=== PATIENT | female | born 1930 | race Caucasian/White ===

== ENCOUNTER 2017-01-26 15:41 | Inpatient (IN) | payer OTHER ==
--- NOTE | 2017-01-26 16:41 | PDOC ---
History of Present Illness - General History Source: Patient Exam Limitations: No Limitations <Salvador Botelloie - Last Filed: 01/26/17 18:57> <Gail Rios - Last Filed: 01/26/17 19:20> - General Chief Complaint: Chest Pain Stated Complaint: CHEST PAIN, SOB - History of Present Illness Initial Comments: 01/26/17 18:16 The patient is an 86-year-old female, with a significant past medical history of , HTN, hypercholesterolemia, COPD, thyroid disease, thyroid ca (on chemotherapy) , who was sent to the ED by Dr Ramirez for further cardiac evaluation. Pt states that she was experiencing palpitations last night that lasted about an hour before resolving on its own. The patient went to see Dr. Ramirez this morning and was found to have afib on her EKG. The pt was started on Eliquis 2 weeks ago. The patient was sent to the ED for further evaluation. The patient denies any fever, chills, nausea vomiting, diarrhea, or abdominal pain. The patient denies any shortness of breath or chest pain. 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) Cardiac Disorders: No CVA: No COPD: Yes (EMPHYSEMA) CHF: No Dementia: No Diabetes: No GI Disorders: Yes (REFLUX) Disorders: No HTN: Yes Hypercholesterolemia: Yes Seizures: No Thyroid Disease: Yes - Surgical History Abdominal Surgery: No Appendectomy: Yes Cardiac Surgery: No Cholecystectomy: No Lung Surgery: No Neurologic Surgery: No Orthopedic Surgery: No - Immunization History Immunization Up to Date: Yes - Suicide/Smoking/Psychosocial Hx Smoking History: Never smoked Have you smoked in the past 12 months: No Information on smoking cessation initiated: No Hx Alcohol Use: No Drug/Substance Use Hx: No Substance Use Type: None Hx Substance Use Treatment: No <Gail Rios - Last Filed: 01/26/17 19:20> - Past Medical History Allergies/Adverse Reactions: Allergies Allergy/AdvReac Type Severity Reaction Status Date / Time codeine AdvReac Intermediate Verified 01/26/17 15:45 Home Medications: Ambulatory Orders Alprazolam 0.25 mg PO DAILY 12/07/12 Amlodipine Bes/Olmesartan Med [Saeed 10-20 mg Tablet] 1 each PO DAILY 12/07/12 Aspirin [ASA -] 81 mg PO DAILY 12/07/12 Atenolol [Tenormin -] 100 mg PO DAILY 12/07/12 Simvastatin [Zocor -] 20 mg PO HS 12/07/12 Levothyroxine [Synthroid -] 88 mcg PO DAILY 06/13/14 Apixaban [Eliquis] 2.5 mg PO DAILY 01/26/17 Dabrafenib Mesylate [Tafinlar] 75 mg PO DAILY 01/26/17 Montelukast Sodium [Singulair] 4 mg PO DAILY 01/26/17 Cardiac Specific PMH - Complaint Specific PMHX Pacemaker: No <Gail Rios - Last Filed: 01/26/17 19:20> Review of Systems - Review of Systems Able to Perform ROS?: Yes <Elizabeth Btoello - Last Filed: 01/26/17 18:57> <Gail Rios - Last Filed: 01/26/17 19:20> - Review of Systems Comments:: 01/26/17 18:16 CONSTITUTIONAL: Absent: fever, chills, diaphoresis, generalized weakness, malaise, loss of appetite HEENT: Absent: rhinorrhea, nasal congestion, throat pain, throat swelling, difficulty swallowing, mouth swelling, ear pain, eye pain, visual Changes CARDIOVASCULAR: Present: palpitations Absent: chest pain, syncope, irregular heart rate, lightheadedness, peripheral edema RESPIRATORY: Absent: cough, shortness of breath, dyspnea with exertion, orthopnea, wheezing, stridor, hemoptysis GASTROINTESTINAL: Absent: abdominal pain, abdominal distension, nausea, vomiting, diarrhea, constipation, melena, hematochezia GENITOURINARY: Absent: dysuria, frequency, urgency, hesitancy, hematuria, flank pain, genital pain MUSCULOSKELETAL: Absent: myalgia, arthralgia, joint swelling SKIN: Absent: rash, itching, pallor HEMATOLOGIC/IMMUNOLOGIC: Absent: easy bleeding, easy bruising, lymphadenopathy, frequent infections ENDOCRINE: Absent: unexplained weight gain, unexplained weight loss, heat intolerance, cold intolerance NEUROLOGIC: Absent: headache, focal weakness or paresthesias, dizziness, unsteady gait, seizure, mental status changes, bladder or bowel incontinence PSYCHIATRIC: Absent: anxiety, depression, suicidal or homicidal ideation, hallucinations. (Elizabeth Botello) *Physical Exam <Elizabeth Botello - Last Filed: 01/26/17 18:57> <Gail Rios - Last Filed: 01/26/17 19:20> - Vital Signs Last Vital Signs Temp Pulse Resp BP Pulse Ox 97.8 F 79 14 141/71 95 01/26/17 15:45 01/26/17 15:45 01/26/17 15:45 01/26/17 15:45 01/26/17 15:45 - Physical Exam Comments: 01/26/17 18:18 GENERAL: Well developed, well nourished. Awake and alert. No acute distress. HEENT: Normocephalic, atraumatic. PERRLA, EOMI. No conjunctival pallor. Sclera are non- icteric. Moist mucous membranes. Oropharynx is clear. NECK: Supple. Full ROM. No JVD. Carotid pulses 2+ and symmetric, without bruits. No thyromegaly. No lymphadenopathy. CARDIOVASCULAR: (+)Tachycardic. Irregularly irregular. No murmurs, rubs, or gallops. Distal pulses are 2+ and symmetric. PULMONARY: No evidence of respiratory distress. Lungs clear to auscultation bilaterally. No wheezing, rales or rhonchi. ABDOMINAL: Soft. Non-tender. Non-distended. No rebound or guarding. No organomegaly. Normoactive bowel sounds. MUSCULOSKELETAL Normal range of motion at all joints. No bony deformities or tenderness. No CVA tenderness. EXTREMITIES: (+)Bilateral 2+ pitting edema in the lower extremities. No cyanosis. No clubbing. No calf tenderness. SKIN: Warm and dry. Normal capillary refill. No rashes. No jaundice. NEUROLOGICAL: Alert, awake, appropriate. PSYCHIATRIC: Cooperative. Good eye contact. Appropriate mood and affect. (Elizabeth Botello) ED Treatment Course - LABORATORY CBC & Chemistry Diagram: 01/26/17 16:50 01/26/17 16:50 <Salvador Botelloie - Last Filed: 01/26/17 18:57> - LABORATORY CBC & Chemistry Diagram: 01/26/17 16:50 01/26/17 16:50 <Gail Rios - Last Filed: 10/02/17 19:20> - ADDITIONAL ORDERS Additional order review: Laboratory Results 01/26/17 01/26/17 01/26/17 16:50 16:50 16:50 PT with INR 13.90 H INR 1.26 H Sodium 130 L Potassium 3.5 Chloride 90 L Carbon Dioxide 27 Anion Gap 13 BUN 16 Creatinine 0.6 Creat Clearance w eGFR > 60 Random Glucose 126 H Calcium 8.4 L Magnesium 1.9 Total Bilirubin 0.7 AST 24 D ALT 23 D Alkaline Phosphatase 67 Creatine Kinase 90 Troponin I < 0.02 B-Natriuretic Peptide 3872.36 H Total Protein 7.0 Albumin 3.7 01/26/17 16:50 RBC 4.00 MCV 86.2 MCHC 34.6 RDW 16.2 H D MPV 7.5 Neutrophils % 86.2 H Lymphocytes % 6.9 L Monocytes % 6.0 Eosinophils % 0.0 Basophils % 0.9 - RADIOLOGY Radiology Studies Ordered: Category Date Time Status CHEST X-RAY PORTABLE* [RAD] Stat Radiology 01/26/17 16:43 Taken Medical Decision Making <Elizabeth Botello - Last Filed: 01/26/17 18:57> <Gail Rios - Last Filed: 01/26/17 19:20> - Medical Decision Making 01/26/17 18:29 Dr. Ramirez was paged and notified via phone service. Second page was placed at 18:57. (Elizabeth Botello) 01/26/17 16:52 86 yo female sent in for admission by Dr Ramirez for admission for further cardiac evaluation -she was placed on eliquis about 2 weeks ago -her garbage pick up man is Dr Valerie Leo -EKG from the office shows rate controlled afib -she had an ECHO last week -she has thyroid cancer and currently on chemo. She has a large left pleural effusion and her bnp >3000 but she NOT in any resp distress, lungs clear to auscultation,no significant pitting edema,pulse ox on room air is >95% bnp>3000. At this time she is asymptomatic and no IV lasix was given 01/26/17 16:57 PMH thyroid cancer on chemo - 01/26/17 19:11 spoke with Torsten Lopez who will be admitting for Dr Ana Paula Ramirez -pt to go to telemetry and will be seen by Dr Guillen ,garbage pick up man - (Gail Rios) *DC/Admit/Observation/Transfer <Elizabeth Botello - Last Filed: 01/26/17 18:57> - Discharge Dispostion Admit: Yes <Gail Rios - Last Filed: 01/26/17 19:20> Diagnosis at time of Disposition: Thyroid malignant neoplasm, Pleural effusion Afib Qualifiers: Atrial fibrillation type: persistent Qualified Code(s): I48.1 - Persistent atrial fibrillation - Referrals - Attestations Scribe Attestion: 01/26/17 18:23 Documentation prepared by Elizabeth Botello, acting as medical records secretary for Gail Rios MD. (Elizabeth Botello)
[2017-01-26 17:17] LABS: BASOPHIL 0.9 % (0-2.0); MCH 29.8 pg (25.7-33.7); MCHC 34.6 g/dl (32.0-36.0); MEAN CELL VOLUME 86.2 fl (80-96); MEAN PLT VOLUME 7.5 fl (7.5-11.1); NEUTROPHILS 86.2 % (42.8-82.8); PLATELET COUNT 272 K/MM3 (134-434); RDW 16.2 % (11.6-15.6); WHITE BLOOD COUNT 8.9 K/mm3 (4.0-10.0)
[2017-01-26 17:41] LABS: INR 1.26 (0.82-1.09); PROTHROMBIN TIME (PATIENT) 13.9 SEC (9.98-11.88)
[2017-01-26 17:43] LABS: ALBUMIN 3.7 g/dl (3.4-5.0); ANION GAP 13 (8-16); CALCIUM 8.4 mg/dL (8.5-10.1); CO2 27 mmol/L (21-32); CREATININE 0.6 mg/dL (0.55-1.02); GLUCOSE,RANDOM 126 mg/dL (74-106); MAGNESIUM 1.9 mg/dL (1.8-2.4); SGOT/AST 24 U/L (15-37); SGPT/ALT 23 U/L (12-78)
[2017-01-26 17:47] LABS: ALK PHOS 67 U/L (45-117); BILIRUBIN,TOTAL 0.7 mg/dL (0.2-1.0); CPK 90 IU/L (26-192); TROPONIN I < 0.02 ng/ml (0.00-0.05)
[2017-01-26] MEDS ORDERED: ALBUTEROL SO4 2.5/IPRATROPIUM 0.5 INH SOL 3 ML VIAL.NEB. NEB PRN (20:17)
[2017-01-26] MEDS ORDERED: ACETAMINOPHEN 325 MG TABLET (FP) PO PRN (20:17)
[2017-01-26 21:10] VITALS: BMI 22.8
[2017-01-26] MEDS: MONTELUKAST NA 10 MG TABLET PO SCH (22:12)
[2017-01-26] MEDS: ATORVASTATIN CA 20 MG TABLET (FP) PO SCH (22:13)
[2017-01-26] MEDS: APIXABAN 2.5 MG TABLET PO SCH (22:13)
[2017-01-26] MEDS: ALPRAZolam 0.25 MG TABLET PO PRN (22:14)
[2017-01-27 06:51] LABS: ALBUMIN 3.4 g/dl (3.4-5.0); ANION GAP 7 (8-16); CO2 31 mmol/L (21-32); GLUCOSE,RANDOM 107 mg/dL (74-106)
[2017-01-27 06:55] LABS: MCH 29.1 pg (25.7-33.7); MCHC 33.7 g/dl (32.0-36.0); MEAN CELL VOLUME 86.3 fl (80-96); MEAN PLT VOLUME 7.8 fl (7.5-11.1); PLATELET COUNT 258 K/MM3 (134-434); RDW 15.8 % (11.6-15.6); WHITE BLOOD COUNT 8.6 K/mm3 (4.0-10.0)
[2017-01-27] MEDS ORDERED: LEVOTHYROXINE NA 88 MCG TABLET (FP) PO SCH (07:00)
[2017-01-27 07:03] LABS: ALK PHOS 65 U/L (45-117); BILIRUBIN,TOTAL 0.8 mg/dL (0.2-1.0); CHOLESTEROL 168 mg/dL (50-200); CREATININE 0.6 mg/dL (0.55-1.02); SGOT/AST 23 U/L (15-37); SGPT/ALT 21 U/L (12-78); TOT PROT 6.8 g/dl (6.4-8.2)
--- NOTE | 2017-01-27 07:43 | HP ---
Admitting History and Physical - Admission History of Present Illness: 86-year-old female, with a significant past medical history of, HTN, hypercholesterolemia, COPD, thyroid disease, thyroid ca (on chemotherapy), who was sent to the ED from office due to chest pain and sob. Pt states that she was experiencing palpitations last night that lasted about an hour before resolving on its own. The patient was seen in office 2 weeks ago noted to be in afib with rate controlled and asymptomatic she was started on Eliquis . Echo done and shows normal Lv function--copy in chart This am pt feels a little better but still with sob on minimal exertion - Past Medical History Cardiovascular: Yes: AFIB, HTN, Hyperlipdemia Pulmonary: Yes: Asthma, Other (pulmonary nodules--mets) Gastrointestinal: Yes: GERD Heme/Onc: Yes: Anemia Endocrine: Yes: Hypothyroidism, Other (osteoporosis) - Past Surgical History Additional Past Surgical History: thyroidectomy - Smoking History Smoking history: Never smoked Have you smoked in the past 12 months: No - Alcohol/Substance Use Hx Alcohol Use: No Home Medications - Allergies Allergies/Adverse Reactions: Allergies Allergy/AdvReac Type Severity Reaction Status Date / Time codeine AdvReac Intermediate Verified 01/26/17 15:45 - Home Medications Home Medications: Ambulatory Orders Alprazolam 0.125 mg PO HS PRN 12/07/12 Amlodipine Bes/Olmesartan Med [Saeed 10-20 mg Tablet] 1 each PO DAILY 12/07/12 Aspirin [ASA -] 81 mg PO DAILY 12/07/12 Atenolol [Tenormin -] 100 mg PO DAILY 12/07/12 Simvastatin [Zocor -] 20 mg PO HS 12/07/12 Levothyroxine [Synthroid -] 88 mcg PO DAILY 06/13/14 Apixaban [Eliquis] 2.5 mg PO BID 01/26/17 Dabrafenib Mesylate [Tafinlar] 75 mg PO BID 01/26/17 Montelukast Sodium [Singulair Granules -] 4 mg PO HS 01/26/17 Review of Systems - Review of Systems Cardiovascular: reports: Chest Pain, Palpitations, Shortness of Breath Respiratory: reports: SOB, SOB on Exertion Gastrointestinal: denies: Abdominal Pain Genitourinary: reports: No Symptoms Musculoskeletal: reports: No Symptoms Neurological: reports: No Symptoms Physical Examination Vital Signs: Vital Signs Temperature 98.4 F 01/27/17 05:53 Pulse Rate 100 H 01/27/17 05:53 Respiratory Rate 20 01/27/17 05:53 Blood Pressure 154/91 01/27/17 05:53 O2 Sat by Pulse Oximetry (%) 94 L 01/26/17 20:30 Cardiovascular: Yes: Pulse Irregular, Murmur, S1, S2 Respiratory: Yes: On Nasal O2, Rales Gastrointestinal: Yes: Normal Bowel Sounds, Soft Edema: No Labs: CBC, BMP 01/27/17 06:00 01/27/17 06:00 Imaging - Results EKG: Report Reviewed Problem List - Problems (1) Afib Assessment/Plan: continue with atenolol tele follow ce echo noted continue with eliquis 2.5 bid(over 80 and less than 60 kg) cardio Code(s): I48.91 - UNSPECIFIED ATRIAL FIBRILLATION Qualifiers: Atrial fibrillation type: persistent Qualified Code(s): I48.1 - Persistent atrial fibrillation; I48.1 - Persistent atrial fibrillation; I48.1 - Persistent atrial fibrillation; I48.1 - Persistent atrial fibrillation (2) Thyroid malignant neoplasm Assessment/Plan: follow up at [facility] \ has been stable Code(s): C73 - MALIGNANT NEOPLASM OF THYROID GLAND (3) CHF (congestive heart failure) Assessment/Plan: iv lasix cardio follow up cxr monitor lytes Code(s): I50.9 - HEART FAILURE, UNSPECIFIED (4) Chest pain Assessment/Plan: follow ce cardio consider stress testing Code(s): R07.9 - CHEST PAIN, UNSPECIFIED
[2017-01-27 08:27] LABS: CPK 71 IU/L (26-192); TROPONIN I 0.02 ng/ml (0.00-0.05)
--- NOTE | 2017-01-27 09:36 | EKG ---
Test Reason : Blood Pressure : / mmHG Vent. Rate : 103 BPM Atrial Rate : 050 BPM P-R Int : 000 ms QRS Dur : 070 ms QT Int : 362 ms P-R-T Axes : 000 014 -72 degrees QTc Int : 474 ms ATRIAL FIBRILLATION WITH RAPID VENTRICULAR RESPONSE LOW VOLTAGE QRS NONSPECIFIC ST AND T WAVE ABNORMALITY ABNORMAL ECG WHEN COMPARED WITH ECG OF 05-JAN-2013 11:07, ATRIAL FIBRILLATION HAS REPLACED SINUS RHYTHM QRS VOLTAGE HAS DECREASED NONSPECIFIC T WAVE ABNORMALITY NOW EVIDENT IN ANTEROLATERAL LEADS QT HAS LENGTHENED Confirmed by MARY LOVE MD ([id number]) on 01/27/2017 9:36:20 AM Referred By: Confirmed By:MARY LOVE MD
[2017-01-27] MEDS ORDERED: ATENOLOL 50 MG TABLET (FP) PO SCH (10:00)
[2017-01-27] MEDS: amLODIPine BESYLATE 10 MG TABLET (FP) PO SCH (10:02)
[2017-01-27] MEDS: VALSARTAN 80 MG TABLET (UD) PO SCH (10:04)
[2017-01-27] MEDS: FUROSEMIDE 40 MG/4 ML INJECTABLE VIAL IVPB SCH (10:05)
[2017-01-27] MEDS: ASPIRIN COATED 81 MG TABLET.EC PO SCH (10:05)
[2017-01-27] MEDS: KCL 10 MEQ IVPB 100 ML IVPB SCH ×2 (10:05→12:27)
[2017-01-27] MEDS: APIXABAN 2.5 MG TABLET PO SCH ×2 (10:05→21:33)
--- NOTE | 2017-01-27 11:52 | PN ---
Progress Note (short form) - Note Progress Note: PULMONARY CONSULTATION DICTATED 01/27/17 IMP CHF BILATERAL PLEURAL EFFUSIONS LIKEY SECONDARY TO CHF AFIB COPD/ASTHMA METASTATIC THYROID CA S/P THYROIDECTOMY/RT/CHEMO GERD ANEMIA PLAN O2 INHALED BRONCHODILATORS ELIQUIS PFTS OUTPATIENT F/U CHEST X-RAY DR YAO Problem List - Problems (1) Afib Code(s): I48.91 - UNSPECIFIED ATRIAL FIBRILLATION Qualifiers: Atrial fibrillation type: persistent Qualified Code(s): I48.1 - Persistent atrial fibrillation; I48.1 - Persistent atrial fibrillation; I48.1 - Persistent atrial fibrillation; I48.1 - Persistent atrial fibrillation (2) CHF (congestive heart failure) Code(s): I50.9 - HEART FAILURE, UNSPECIFIED (3) Pleural effusion Code(s): J90 - PLEURAL EFFUSION, NOT ELSEWHERE CLASSIFIED (4) Thyroid malignant neoplasm Code(s): C73 - MALIGNANT NEOPLASM OF THYROID GLAND (5) Asthma-COPD overlap syndrome Code(s): J44.9 - CHRONIC OBSTRUCTIVE PULMONARY DISEASE, UNSPECIFIED
--- NOTE | 2017-01-27 14:21 | CONS ---
PULMONARY CONSULTATION DATE OF CONSULTATION: 01/27/2017 REFERRING PHYSICIAN: Andrea Ramirez MD HISTORY OF PRESENT ILLNESS: The patient is an 86-year-old white female with a past medical history of COPD and asthma, maintained on inhaled bronchodilators; hypertension; hypercholesterolemia; thyroid CA with metastasis, status post resection in 2012, postoperative treated with RT; vocal cord paralysis; currently started on chemotherapy at [facility] with Dr. Dai, admitted to [facility] with complaint of chest pain and shortness of breath. Patient apparently 2 weeks ago was noted to be in atrial fibrillation. She was started on Eliquis. Apparently, the night prior to admission, patient started developing shortness of breath and palpitations. Denied any complaints of chest pain or nausea, vomiting, or diaphoresis. Patient went to Dr. Ramirez's office with the above; for which, she was transferred to [facility] ER. Apparently, she had an echo done which was within normal limits. Patient was admitted for further evaluation. The patient, as stated before, is a nonsmoker. There is no history of occupational exposure to chemicals or fumes. She has a history of asthma for many years. She has never been intubated. On admission x-ray, she was noted to have bilateral pleural effusions, left greater than right, with a density noted in the left mid-lung field. Of note is she, as stated before, is being followed at [facility], has a CAT scan every 3 months at [facility]. PAST MEDICAL HISTORY: Again includes atrial fibrillation; hypertension; hyperlipidemia; thyroid CA with pulmonary metastases, status post resection; asthma; GERD; anemia; hypothyroidism; osteoporosis. REVIEW OF SYSTEMS: No orthopnea. No PND. Positive palpitations. Positive shortness of breath. No fever. No chills. No chest pain. No hemoptysis. No abdominal pain. No lower extremity edema. CURRENT MEDICATIONS: Include Tylenol, Eliquis, Diovan, Xanax, DuoNeb, Tenormin, Lipitor, Singulair, Lasix, Ecotrin, and Synthroid. PHYSICAL EXAMINATION: General: The patient is an elderly white female, thin, well developed, alert, in no acute distress. Vital Signs: She is afebrile. Blood pressure 154/91, respiratory rate is 20, and O2 saturation is 94% on room air and heart rate is 100. HEENT: Normocephalic, atraumatic. Neck: Supple. Heart: Irregular, irregular. Normal S1, S2. Chest: Diminished breath sounds bilaterally at the bases. A few bibasilar crackles. Abdomen: Soft. Bowel sounds are positive. Extremities: No cyanosis or edema. LABORATORY DATA: WBC is 8.6, hemoglobin 11.8, hematocrit 35.1 with a platelet count of 258,000. INR is 1.26. BUN is 15, creatinine 0.6. BNP is 30,872. TSH is 10.1. Chest x-ray: Cardiomegaly with bilateral pleural effusions. IMPRESSION: 1. Dyspnea, most likely secondary to decompensated congestive heart failure. 2. Metastatic thyroid cancer with pulmonary metastases, status post resection, currently on chemotherapy. 3. Bilateral pulmonary nodules secondary to metastatic thyroid cancer. 4. Atrial fibrillation. 5. Exacerbation of asthma and chronic obstructive pulmonary disease. 6. Hyperlipidemia. 7. Anemia. 8. Gastroesophageal reflux disease. PLAN: Continue rate control as per Cardiology. Continue Eliquis. Supplemental O2. Obtain followup chest x-rays. Lasix, inhaled bronchodilators. PFTs as an outpatient. PONCHO YAO M.D. [id number]
--- NOTE | 2017-01-27 16:15 | CONSULT ---
Consult Consult Specialty:: Nephrology Reason for Consultation:: hyponatremia - History of Present Illness Chief Complaint: chest pain and shortness of breath History of Present Illness: Pt is an 86 year old female with pmhx of HTN, Chol, recently diagnosed a-fib, CODP, and thyroid cancer who was sent to ER for chest pain and shortness of breath. She was found to have hyponatremia and I was called to evaluate her. She says she has been on a thiazide diuretic. She denies excess fluid intake. She was found to have elevated bnp and pleural effusions. Pt was started on diuretics. She feels that the shortness of breath has improved. She denies dysuria or hematuria. - History Source History Provided By: Patient, Medical Record - Past Medical History Cardio/Vascular: Yes: AFIB, HTN, Hyperlipdemia Pulmonary: Yes: Asthma, Other (pulmonary nodules--mets) Gastrointestinal: Yes: GERD Endocrine: Yes: Hypothyroidism, Other (osteoporosis) - Alcohol/Substance Use Hx Alcohol Use: No - Smoking History Smoking history: Never smoked Have you smoked in the past 12 months: No Home Medications - Allergies Allergies/Adverse Reactions: Allergies Allergy/AdvReac Type Severity Reaction Status Date / Time codeine AdvReac Intermediate Verified 01/26/17 15:45 - Home Medications Home Medications: Ambulatory Orders Alprazolam 0.125 mg PO HS PRN 12/07/12 Amlodipine Bes/Olmesartan Med [Saeed 10-20 mg Tablet] 1 each PO DAILY 12/07/12 Aspirin [ASA -] 81 mg PO DAILY 12/07/12 Atenolol [Tenormin -] 100 mg PO DAILY 12/07/12 Simvastatin [Zocor -] 20 mg PO HS 12/07/12 Levothyroxine [Synthroid -] 88 mcg PO DAILY 06/13/14 Apixaban [Eliquis] 2.5 mg PO BID 01/26/17 Dabrafenib Mesylate [Tafinlar] 75 mg PO BID 01/26/17 Montelukast Sodium [Singulair Granules -] 4 mg PO HS 01/26/17 Family Disease History - Family Disease History Family History: Denies Review of Systems - Review of Systems Constitutional: reports: Malaise Eyes: reports: No Symptoms HENT: reports: No Symptoms Neck: reports: No Symptoms Cardiovascular: reports: Edema, Palpitations, Shortness of Breath Respiratory: reports: SOB Gastrointestinal: reports: No Symptoms Genitourinary: reports: No Symptoms Musculoskeletal: reports: No Symptoms Integumentary: reports: No Symptoms Neurological: reports: No Symptoms Endocrine: reports: No Symptoms Hematology/Lymphatic: reports: No Symptoms Psychiatric: reports: No Symptoms Physical Exam Vital Signs: Vital Signs Temperature 98.4 F 01/27/17 05:53 Pulse Rate 100 H 01/27/17 05:53 Respiratory Rate 20 01/27/17 05:53 Blood Pressure 154/91 01/27/17 05:53 O2 Sat by Pulse Oximetry (%) 94 L 01/26/17 20:30 Constitutional: Yes: Calm Eyes: Yes: Conjunctiva Clear HENT: Yes: Atraumatic Neck: Yes: Supple Cardiovascular: Yes: S1, S2 Respiratory: Yes: Other (decreased sounds at bases) Gastrointestinal: Yes: Soft Renal/: Yes: WNL Musculoskeletal: Yes: WNL Edema: LLE: Trace, RLE: Trace Neurological: Yes: Oriented Psychiatric: Yes: Oriented Labs: CBC, BMP 01/27/17 06:00 01/27/17 06:00 Laboratory Tests 01/04/13 01/05/13 01/06/13 05:05 05:20 06:00 WBC Hgb Sodium 133 L 134 L 134 L Potassium Chloride Carbon Dioxide Anion Gap BUN Creatinine Random Glucose B-Natriuretic Peptide TSH 01/26/17 01/26/17 01/26/17 16:50 16:50 16:50 WBC Hgb 11.9 D Sodium 130 L Potassium 3.5 Chloride 90 L Carbon Dioxide 27 Anion Gap 13 BUN 16 Creatinine 0.6 Random Glucose B-Natriuretic Peptide 3872.36 H TSH 01/27/17 01/27/17 06:00 06:00 WBC 8.6 Hgb 11.8 Sodium 127 L Potassium 3.2 L Chloride 89 L Carbon Dioxide 31 Anion Gap 7 L BUN 15 Creatinine 0.6 Random Glucose 107 H B-Natriuretic Peptide TSH 10.10 H Imaging - Results Chest X-ray: Report Reviewed Problem List - Problems (1) Afib Code(s): I48.91 - UNSPECIFIED ATRIAL FIBRILLATION Qualifiers: Atrial fibrillation type: persistent Qualified Code(s): I48.1 - Persistent atrial fibrillation; I48.1 - Persistent atrial fibrillation; I48.1 - Persistent atrial fibrillation; I48.1 - Persistent atrial fibrillation (2) Asthma-COPD overlap syndrome Code(s): J44.9 - CHRONIC OBSTRUCTIVE PULMONARY DISEASE, UNSPECIFIED (3) CHF (congestive heart failure) Code(s): I50.9 - HEART FAILURE, UNSPECIFIED (4) Chest pain Code(s): R07.9 - CHEST PAIN, UNSPECIFIED (5) Pleural effusion Code(s): J90 - PLEURAL EFFUSION, NOT ELSEWHERE CLASSIFIED (6) Thyroid malignant neoplasm Code(s): C73 - MALIGNANT NEOPLASM OF THYROID GLAND (7) Hyponatremia Code(s): E87.1 - HYPO-OSMOLALITY AND HYPONATREMIA Assessment/Plan Current Medications Generic Name Dose Route Start Last Admin Trade Name Freq PRN Reason Stop Dose Admin Acetaminophen 650 mg 01/26/17 20:17 Tylenol - PO Q6H PRN FEVER OR PAIN Albuterol/Ipratropium 1 amp 01/26/17 20:17 Duoneb - NEB Q6H PRN SHORTNESS OF BREATH Alprazolam 0.25 mg 01/26/17 20:17 01/26/17 22:14 Xanax - PO 0.125 mg Q8H PRN Administration ANXIETY Amlodipine Besylate 10 mg 01/27/17 10:00 01/27/17 10:02 Norvasc - PO 10 mg DAILY TERRI Administration Apixaban 2.5 mg 01/26/17 22:00 01/27/17 10:05 Eliquis - PO 2.5 mg BID TERRI Administration Aspirin 81 mg 01/27/17 10:00 01/27/17 10:05 Ecotrin - PO Not Given DAILY TERRI Atenolol 100 mg 01/27/17 10:00 01/27/17 10:02 Tenormin - PO 100 mg DAILY TERRI Administration Atorvastatin Calcium 20 mg 01/26/17 22:00 01/26/17 22:13 Lipitor - PO 20 mg HS TERRI Administration Furosemide 40 mg 01/27/17 10:00 01/27/17 10:05 Lasix Injection - IVPB 40 mg DAILY TERRI Administration Levothyroxine Sodium 100 mcg 01/27/17 07:42 Synthroid - PO DAILY@0700 TERRI Montelukast Sodium 10 mg 01/26/17 22:00 01/26/17 22:12 Singulair - PO 10 mg HS TERRI Administration Patient's Own 1 each 01/27/17 22:00 Medication (Non- PO Formulary) (Taflinar BID TERRI 75 Mg Po Bid) Valsartan 80 mg 01/27/17 10:00 01/27/17 10:04 Diovan - PO 80 mg DAILY TERRI Administration Impression 1. hyponatremia 2. CHF 3. hypothyroidism 4. thyroid cancer 5. HTN 6. a-fib 7. hyperlipidemia 8. pleural effusion Plan - check plasma and urine osm - check urine sodium (will likely be elevated as she is on lasix) - tsh is elevated, consider increasing synthroid dose - check ua - will order am cortisol - pt does have elevated bmp, pleural effusions and cardiomegaly. She can have hyponatremia secondary to chf - monitor sodium closely Dr Del Cid
--- NOTE | 2017-01-27 19:58 | CON.CARD ---
Consult Consult Specialty:: Cardiology Reason for Consultation:: AFIB - History of Present Illness Chief Complaint: Palpitations History of Present Illness: This is an 86 year old female with a PMH of HTN, HLD, COPD, and thyroid ca. She was sent to the ED from her PCP's office with chest pain, palpitations, and QUINTERO. Two weeks prior she was noted to be in new onset afib and was started on Eliquis. She has normal LV function on echocardiogram. n - Past Medical History Cardio/Vascular: Yes: AFIB, HTN, Hyperlipdemia Pulmonary: Yes: Asthma, Other (pulmonary nodules--mets) Gastrointestinal: Yes: GERD Endocrine: Yes: Hypothyroidism, Other (osteoporosis) - Alcohol/Substance Use Hx Alcohol Use: No - Smoking History Smoking history: Never smoked Have you smoked in the past 12 months: No Home Medications - Allergies Allergies/Adverse Reactions: Allergies Allergy/AdvReac Type Severity Reaction Status Date / Time codeine AdvReac Intermediate Verified 01/26/17 15:45 - Home Medications Home Medications: Ambulatory Orders Alprazolam 0.125 mg PO HS PRN 12/07/12 Amlodipine Bes/Olmesartan Med [Saeed 10-20 mg Tablet] 1 each PO DAILY 12/07/12 Aspirin [ASA -] 81 mg PO DAILY 12/07/12 Atenolol [Tenormin -] 100 mg PO DAILY 12/07/12 Simvastatin [Zocor -] 20 mg PO HS 12/07/12 Levothyroxine [Synthroid -] 88 mcg PO DAILY 06/13/14 Apixaban [Eliquis] 2.5 mg PO BID 01/26/17 Dabrafenib Mesylate [Tafinlar] 75 mg PO BID 01/26/17 Montelukast Sodium [Singulair Granules -] 4 mg PO HS 01/26/17 Review of Systems Unable to obtain ROS, reason: As per HPI Vital Signs: Vital Signs Temperature 97.9 F 01/27/17 17:00 Pulse Rate 117 H 01/27/17 17:00 Respiratory Rate 20 01/27/17 17:00 Blood Pressure 104/64 01/27/17 17:00 O2 Sat by Pulse Oximetry (%) 94 L 01/26/17 20:30 Constitutional: Yes: No Distress HENT: Yes: WNL Neck: Yes: WNL Respiratory: Yes: CTA Bilaterally Gastrointestinal: Yes: Soft Cardiovascular: Yes: Pulse Irregular (NL S1S2, no MRHG) JVD: No Extremities: Yes: WNL Edema: No Neurological: Yes: Oriented (Grossly nonfocal) Psychiatric: Yes: WNL - Other Data Labs, Other Data: CBC, BMP 01/27/17 06:00 01/27/17 06:00 INR, PTT INR 1.26 (0.82-1.09) H 01/26/17 16:50 Troponin, BNP 01/27/17 01/27/17 06:00 06:00 Troponin I 0.02 Cancelled Troponin, BNP 01/27/17 01/27/17 06:00 06:00 Troponin I 0.02 Cancelled Assessment/Plan Atrial Fibrillation HR is now 117 BPM on Atenolol 100 mg PO daily Would consider changing to a Beta Deedee with a longer 1/2 life such as Toprol XL at 50 mg and titrate up as needed Continue Apixaban [Eliquis] 2.5 mg PO BID HTN BP is 104/64 mmHg, would lower Saeed to amlodipine 5 mg/ommesartan 50 mg Will follow with you
[2017-01-27] MEDS: MONTELUKAST NA 10 MG TABLET PO SCH (21:34)
[2017-01-27] MEDS: ATORVASTATIN CA 20 MG TABLET (FP) PO SCH (21:34)
[2017-01-27] MEDS: DABRAFENIB PO SCH (21:37)
[2017-01-28] MEDS: LEVOTHYROXINE NA 100 MCG TABLET (FP) PO SCH (06:07)
--- NOTE | 2017-01-28 08:35 | PN ---
Progress Note, Physician - Current Medication List Current Medications: Active Medications Acetaminophen (Tylenol -) 650 mg PO Q6H PRN PRN Reason: FEVER OR PAIN Albuterol/Ipratropium (Duoneb -) 1 amp NEB Q6H PRN PRN Reason: SHORTNESS OF BREATH Alprazolam (Xanax -) 0.25 mg PO Q8H PRN PRN Reason: ANXIETY Last Admin: 01/26/17 22:14 Dose: 0.125 mg Amlodipine Besylate (Norvasc -) 10 mg PO DAILY [facility] Last Admin: 01/27/17 10:02 Dose: 10 mg Apixaban (Eliquis -) 2.5 mg PO BID [facility] Last Admin: 01/27/17 21:33 Dose: 2.5 mg Aspirin (Ecotrin -) 81 mg PO DAILY [facility] Last Admin: 01/27/17 10:05 Dose: Not Given Atorvastatin Calcium (Lipitor -) 20 mg PO HS [facility] Last Admin: 01/27/17 21:34 Dose: 20 mg Furosemide (Lasix Injection -) 40 mg IVPB DAILY [facility] Last Admin: 01/27/17 10:05 Dose: 40 mg Levothyroxine Sodium (Synthroid -) 100 mcg PO DAILY@0700 [facility] Last Admin: 01/28/17 06:07 Dose: 100 mcg Metoprolol Tartrate (Lopressor -) 50 mg PO BID [facility] Montelukast Sodium (Singulair -) 10 mg PO HS [facility] Last Admin: 01/27/17 21:34 Dose: 10 mg Patient's Own Medication (Non- Formulary) (Taflinar 75 Mg Po Bid) 1 each PO BID [facility] Last Admin: 01/27/17 21:37 Dose: Not Given Valsartan (Diovan -) 80 mg PO DAILY [facility] Last Admin: 01/27/17 10:04 Dose: 80 mg - Objective Vital Signs: Vital Signs Temperature 98.7 F 01/28/17 05:17 Pulse Rate 104 H 01/28/17 05:17 Respiratory Rate 20 01/28/17 05:17 Blood Pressure 123/64 01/28/17 05:17 O2 Sat by Pulse Oximetry (%) 94 L 01/27/17 20:28 Labs: CBC, BMP 01/27/17 06:00 01/27/17 06:00 INR, PTT INR 1.26 (0.82-1.09) H 01/26/17 16:50 Problem List - Problems (1) Afib Code(s): I48.91 - UNSPECIFIED ATRIAL FIBRILLATION Qualifiers: Atrial fibrillation type: persistent Qualified Code(s): I48.1 - Persistent atrial fibrillation; I48.1 - Persistent atrial fibrillation; I48.1 - Persistent atrial fibrillation; I48.1 - Persistent atrial fibrillation (2) Thyroid malignant neoplasm Code(s): C73 - MALIGNANT NEOPLASM OF THYROID GLAND (3) CHF (congestive heart failure) Code(s): I50.9 - HEART FAILURE, UNSPECIFIED (4) Chest pain Code(s): R07.9 - CHEST PAIN, UNSPECIFIED
--- NOTE | 2017-01-28 08:46 | PN ---
Progress Note, Physician History of Present Illness: FEELS BETTER - Current Medication List Current Medications: Active Medications Acetaminophen (Tylenol -) 650 mg PO Q6H PRN PRN Reason: FEVER OR PAIN Albuterol/Ipratropium (Duoneb -) 1 amp NEB Q6H PRN PRN Reason: SHORTNESS OF BREATH Alprazolam (Xanax -) 0.25 mg PO Q8H PRN PRN Reason: ANXIETY Last Admin: 01/26/17 22:14 Dose: 0.125 mg Amlodipine Besylate (Norvasc -) 10 mg PO DAILY [facility] Last Admin: 01/27/17 10:02 Dose: 10 mg Apixaban (Eliquis -) 2.5 mg PO BID [facility] Last Admin: 01/27/17 21:33 Dose: 2.5 mg Aspirin (Ecotrin -) 81 mg PO DAILY [facility] Last Admin: 01/27/17 10:05 Dose: Not Given Atorvastatin Calcium (Lipitor -) 20 mg PO HS [facility] Last Admin: 01/27/17 21:34 Dose: 20 mg Furosemide (Lasix Injection -) 40 mg IVPB DAILY [facility] Last Admin: 01/27/17 10:05 Dose: 40 mg Levothyroxine Sodium (Synthroid -) 100 mcg PO DAILY@0700 [facility] Last Admin: 01/28/17 06:07 Dose: 100 mcg Metoprolol Tartrate (Lopressor -) 50 mg PO BID [facility] Montelukast Sodium (Singulair -) 10 mg PO HS [facility] Last Admin: 01/27/17 21:34 Dose: 10 mg Patient's Own Medication (Non- Formulary) (Taflinar 75 Mg Po Bid) 1 each PO BID [facility] Last Admin: 01/27/17 21:37 Dose: Not Given Valsartan (Diovan -) 80 mg PO DAILY [facility] Last Admin: 01/27/17 10:04 Dose: 80 mg - Objective Vital Signs: Vital Signs Temperature 98.7 F 01/28/17 05:17 Pulse Rate 104 H 01/28/17 05:17 Respiratory Rate 20 01/28/17 05:17 Blood Pressure 123/64 01/28/17 05:17 O2 Sat by Pulse Oximetry (%) 94 L 01/27/17 20:28 Cardiovascular: Yes: Tachycardia, Pulse Irregular, S1, S2 Respiratory: Yes: Rales (AT THE BASES) Gastrointestinal: Yes: Normal Bowel Sounds, Soft Labs: CBC, BMP 01/27/17 06:00 01/27/17 06:00 INR, PTT INR 1.26 (0.82-1.09) H 01/26/17 16:50 Problem List - Problems (1) Afib Assessment/Plan: RAPID DC atenolol--START METOPROLO 50 BID tele echo noted continue with eliquis 2.5 bid(over 80 and less than 60 kg) cardio Code(s): I48.91 - UNSPECIFIED ATRIAL FIBRILLATION Qualifiers: Atrial fibrillation type: persistent Qualified Code(s): I48.1 - Persistent atrial fibrillation; I48.1 - Persistent atrial fibrillation; I48.1 - Persistent atrial fibrillation; I48.1 - Persistent atrial fibrillation (2) Thyroid malignant neoplasm Assessment/Plan: follow up at [facility] \ has been stable Code(s): C73 - MALIGNANT NEOPLASM OF THYROID GLAND (3) CHF (congestive heart failure) Assessment/Plan: iv lasix cardio follow up cxr monitor lytes Code(s): I50.9 - HEART FAILURE, UNSPECIFIED (4) Chest pain Assessment/Plan: follow ce cardio consider stress testing Code(s): R07.9 - CHEST PAIN, UNSPECIFIED (5) Hyponatremia Assessment/Plan: CHRONIC- MONITOR Code(s): E87.1 - HYPO-OSMOLALITY AND HYPONATREMIA
[2017-01-28 08:50] LABS: URINE APPEARANCE CLEAR; URINE BILIRUBIN NEGATIVE (NEGATIVE); URINE BLOOD NEGATIVE (NEGATIVE); URINE COLOR YELLOW; URINE GLUCOSE (UA) NEGATIVE (NEGATIVE); URINE KETONE TRACE (NEGATIVE); URINE LEUK ESTERASE NEGATIVE (NEGATIVE); URINE NITRITE NEGATIVE (NEGATIVE); URINE PROTEIN NEGATIVE (NEGATIVE); URINE UROBILINOGEN NEGATIVE mg/dL (0.2-1.0)
[2017-01-28] MEDS: METOPROLOL TARTRATE 50 MG TABLET (FP) PO SCH ×2 (09:07→23:37)
[2017-01-28] MEDS: APIXABAN 2.5 MG TABLET PO SCH ×2 (09:07→23:37)
[2017-01-28] MEDS: FUROSEMIDE 40 MG/4 ML INJECTABLE VIAL IVPB SCH (09:08)
[2017-01-28] MEDS: ASPIRIN COATED 81 MG TABLET.EC PO SCH (09:09)
[2017-01-28] MEDS: VALSARTAN 80 MG TABLET (UD) PO SCH (09:09)
[2017-01-28] MEDS: amLODIPine BESYLATE 10 MG TABLET (FP) PO SCH (09:09)
[2017-01-28] MEDS: DABRAFENIB PO SCH ×2 (09:50→23:39)
[2017-01-28] MEDS ORDERED: DABRAFENIB PO SCH (10:00)
--- NOTE | 2017-01-28 10:53 | PN ---
Progress Note, Physician History of Present Illness: PULMONARY ALERT,FEELING BETTER,LESS DYSPNEIC,-CP,-COUGH - Current Medication List Current Medications: Active Medications Acetaminophen (Tylenol -) 650 mg PO Q6H PRN PRN Reason: FEVER OR PAIN Albuterol/Ipratropium (Duoneb -) 1 amp NEB Q6H PRN PRN Reason: SHORTNESS OF BREATH Alprazolam (Xanax -) 0.25 mg PO Q8H PRN PRN Reason: ANXIETY Last Admin: 01/26/17 22:14 Dose: 0.125 mg Amlodipine Besylate (Norvasc -) 10 mg PO DAILY [facility] Last Admin: 01/28/17 09:09 Dose: Not Given Apixaban (Eliquis -) 2.5 mg PO BID [facility] Last Admin: 01/28/17 09:07 Dose: 2.5 mg Aspirin (Ecotrin -) 81 mg PO DAILY [facility] Last Admin: 01/28/17 09:09 Dose: Not Given Atorvastatin Calcium (Lipitor -) 20 mg PO HS [facility] Last Admin: 01/27/17 21:34 Dose: 20 mg Furosemide (Lasix Injection -) 40 mg IVPB DAILY [facility] Last Admin: 01/28/17 09:08 Dose: 40 mg Levothyroxine Sodium (Synthroid -) 100 mcg PO DAILY@0700 [facility] Last Admin: 01/28/17 06:07 Dose: 100 mcg Metoprolol Tartrate (Lopressor -) 50 mg PO BID [facility] Last Admin: 01/28/17 09:07 Dose: 50 mg Montelukast Sodium (Singulair -) 10 mg PO HS [facility] Last Admin: 01/27/17 21:34 Dose: 10 mg Patient's Own Medication (Non- Formulary) (Taflinar 75 Mg Po Bid) 1 each PO BID [facility] Last Admin: 01/28/17 09:50 Dose: Not Given Valsartan (Diovan -) 80 mg PO DAILY [facility] Last Admin: 01/28/17 09:09 Dose: 80 mg - Objective Vital Signs: Vital Signs Temperature 98.7 F 01/28/17 05:17 Pulse Rate 104 H 01/28/17 05:17 Respiratory Rate 20 01/28/17 05:17 Blood Pressure 123/64 01/28/17 05:17 O2 Sat by Pulse Oximetry (%) 94 L 01/27/17 20:28 Constitutional: Yes: Calm, Thin Eyes: Yes: WNL HENT: Yes: WNL Neck: Yes: WNL Cardiovascular: Yes: Pulse Irregular, S1, S2 Respiratory: Yes: Rales (BIBASILAR CRACKLES) Gastrointestinal: Yes: Normal Bowel Sounds, Soft Extremities: Yes: WNL Edema: No Labs: CBC, BMP 01/27/17 06:00 01/27/17 06:00 INR, PTT INR 1.26 (0.82-1.09) H 01/26/17 16:50 Problem List - Problems (1) Afib Code(s): I48.91 - UNSPECIFIED ATRIAL FIBRILLATION Qualifiers: Atrial fibrillation type: persistent Qualified Code(s): I48.1 - Persistent atrial fibrillation; I48.1 - Persistent atrial fibrillation; I48.1 - Persistent atrial fibrillation; I48.1 - Persistent atrial fibrillation (2) CHF (congestive heart failure) Code(s): I50.9 - HEART FAILURE, UNSPECIFIED (3) Pleural effusion Code(s): J90 - PLEURAL EFFUSION, NOT ELSEWHERE CLASSIFIED (4) Thyroid malignant neoplasm Code(s): C73 - MALIGNANT NEOPLASM OF THYROID GLAND (5) Asthma-COPD overlap syndrome Code(s): J44.9 - CHRONIC OBSTRUCTIVE PULMONARY DISEASE, UNSPECIFIED Assessment/Plan MP CHF BILATERAL PLEURAL EFFUSIONS LIKEY SECONDARY TO CHF AFIB COPD/ASTHMA METASTATIC THYROID CA S/P THYROIDECTOMY/RT/CHEMO GERD ANEMIA HYPONATREMIA PLAN O2 INHALED BRONCHODILATORS ELIQUIS PFTS OUTPATIENT F/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 Problem List - Problems (1) Afib Code(s): I48.91 - UNSPECIFIED ATRIAL FIBRILLATION Qualifiers: Atrial fibrillation type: persistent Qualified Code(s): I48.1 - Persistent atrial fibrillation; I48.1 - Persistent atrial fibrillation; I48.1 - Persistent atrial fibrillation; I48.1 - Persistent atrial fibrillation (2) CHF (congestive heart failure) Code(s): I50.9 - HEART FAILURE, UNSPECIFIED (3) Pleural effusion Code(s): J90 - PLEURAL EFFUSION, NOT ELSEWHERE CLASSIFIED (4) Thyroid malignant neoplasm Code(s): C73 - MALIGNANT NEOPLASM OF THYROID GLAND (5) Asthma-COPD overlap syndrome Code(s): J44.9 - CHRONIC OBSTRUCTIVE PULMONARY DISEASE, UNSPECIFIED
[2017-01-28 11:28] LABS: ANION GAP 13 (8-16); CALCIUM 8.3 mg/dL (8.5-10.1); CO2 32 mmol/L (21-32); CREATININE 0.7 mg/dL (0.55-1.02); GLUCOSE,RANDOM 110 mg/dL (74-106)
--- NOTE | 2017-01-28 11:47 | PN ---
Physical Exam: RENAL CONSULT FOR HYPONATREMIA SUBJECTIVE: Patient seen and examined at bed side. Patient mentions that she came in to the hospital due to Shortness of breath, she had been having cold like symptoms for the past couple of days along with whitish productive sputum. Denies fever, chills, rigors, sweating, chest pain, abdominal pain, nausea or vomiting. Bowel/Bladder habit normal. Sleep/Appetite normal. Also mentions she has difficulty swallowing and can eat only selective meals. Otherwise feels better than yesterday. Lives at home with her and can do daily activities independently. No acute overnight events as per RN. OBJECTIVE: Vital Signs Period Temp Pulse Resp BP Sys/Roberts Pulse Ox Last 24 Hr 97.7 F-98.7 F 88-123 18-20 102-129/47-74 94-96 GENERAL: Elderly female, lying comfortably in bed, awake, alert, and fully oriented, in no acute distress. HEAD: Normal with no signs of trauma. EYES: EOM intact, mild pallor, no icterus. ENT: Ears normal, moist mucous membranes. NECK: Supple. LUNGS: Breath sounds equal, clear to auscultation bilaterally, no wheezes, no crackles, no accessory muscle use. HEART: Irregularly irregular rate and rhytm, S1, S2 with soft systolic murmur. ABDOMEN: Soft, nontender, nondistended, normoactive bowel sounds, no guarding, no rebound, no hepatosplenomegaly, no masses. EXTREMITIES: 2+ pulses, warm, well-perfused, no edema. NEUROLOGICAL: No facial droop, power 5/5 in all extremities, Normal speech, gait not observed. PSYCH: Normal mood, normal affect. SKIN: Warm, dry, normal turgor, no rashes or lesions noted Laboratory Results - last 24 hr 01/28/17 01/28/17 01/28/17 05:10 06:45 06:45 Sodium Potassium Chloride Carbon Dioxide Anion Gap BUN Creatinine Random Glucose Serum Osmolality 268 L Calcium Urine Color Yellow Urine Appearance Clear Urine pH 7.0 Urine Protein Negative Urine Glucose (UA) Negative Urine Ketones Trace H Urine Blood Negative Urine Nitrite Negative Urine Bilirubin Negative Urine Urobilinogen Negative Urine Osmolality Ur Random Sodium 40 Ur Random Potassium 46.7 Ur Random Chloride 14 01/28/17 01/28/17 06:45 10:57 Sodium 130 L Potassium 3.1 L Chloride 85 L Carbon Dioxide 32 Anion Gap 13 BUN 18 Creatinine 0.7 Random Glucose 110 H Serum Osmolality Calcium 8.3 L Urine Color Urine Appearance Urine pH Urine Protein Urine Glucose (UA) Urine Ketones Urine Blood Urine Nitrite Urine Bilirubin Urine Urobilinogen Urine Osmolality 521 Ur Random Sodium Ur Random Potassium Ur Random Chloride Active Medications Generic Name Dose Route Start Last Admin Trade Name Freq PRN Reason Stop Dose Admin Acetaminophen 650 mg 01/26/17 20:17 Tylenol - PO Q6H PRN FEVER OR PAIN Albuterol/Ipratropium 1 amp 01/26/17 20:17 Duoneb - NEB Q6H PRN SHORTNESS OF BREATH Alprazolam 0.25 mg 01/26/17 20:17 01/26/17 22:14 Xanax - PO 0.125 mg Q8H PRN Administration ANXIETY Amlodipine Besylate 10 mg 01/27/17 10:00 01/28/17 09:09 Norvasc - PO Not Given DAILY [facility] Apixaban 2.5 mg 01/26/17 22:00 01/28/17 09:07 Eliquis - PO 2.5 mg BID [facility] Administration Aspirin 81 mg 01/27/17 10:00 01/28/17 09:09 Ecotrin - PO Not Given DAILY [facility] Atorvastatin Calcium 20 mg 01/26/17 22:00 01/27/17 21:34 Lipitor - PO 20 mg HS [facility] Administration Furosemide 40 mg 01/27/17 10:00 01/28/17 09:08 Lasix Injection - IVPB 40 mg DAILY [facility] Administration Levothyroxine Sodium 100 mcg 01/27/17 07:42 01/28/17 06:07 Synthroid - PO 100 mcg DAILY@0700 [facility] Administration Metoprolol Tartrate 50 mg 01/28/17 10:00 01/28/17 09:07 Lopressor - PO 50 mg BID [facility] Administration Montelukast Sodium 10 mg 01/26/17 22:00 01/27/17 21:34 Singulair - PO 10 mg HS [facility] Administration Patient's Own 1 each 01/27/17 22:00 01/28/17 09:50 Medication (Non- PO Not Given Formulary) (Taflinar BID [facility] 75 Mg Po Bid) Valsartan 80 mg 01/27/17 10:00 01/28/17 09:09 Diovan - PO 80 mg DAILY [facility] Administration Patient is a 86-year-old female, with a significant past medical history of, HTN , hyperlipidemia COPD, thyroid disease, thyroid ca (on chemotherapy), who was sent to the ED from office due to shortness of breath. ASSESSMENT/PLAN: 1. Hyponatremia 2. Hypertension 3. Hyperlipidemia 4. Hypothyroidism 5. Thyroid cancer s/p thyroidectomy, radiation and chemo 6. Atrial fibrillation-rate controlled 7. Shortness of breath likely due to Pleural effusion, CHF 8. Hypokalemia Hypotonic Hyponatremia On presentation, sodium was 130---> 127---> 130 today. Serum Osmolarity 268, osmolar gap 32, Urine osmolality 521, likely it is hypotonic hyponatremia Hyponatremia can also be secondary to CHF and pleural effusion. Urine electrolyes normal Restrict fluid intake Encourage patient to eat Hypokalemia K-3.5--->3.2--->3.1 Add K-dur 40 mg daily Rest as per primary Case discussed with Dr. Del Cid. Thank you for the consultative opportunity. Visit type - Emergency Visit Emergency Visit: Yes ED Registration Date: 01/26/17 Care time: The patient presented to the Emergency Department on the above date and was hospitalized for further evaluation of their emergent condition. - New Patient This patient is new to me today: Yes Date on this admission: 01/28/17 - Critical Care Critical Care patient: No - Discharge Referral Referred to [facility] Med P.C.: No
[2017-01-28] MEDS ORDERED: POTASSIUM CHLORIDE TABS 20 MEQ TABLET.ER (FP) PO ONE (15:30)
--- NOTE | 2017-01-28 15:35 | PN ---
Teaching Attending Note Name of Resident: Shivani Han (Nephrology) ATTENDING PHYSICIAN STATEMENT I saw and evaluated the patient. I reviewed the resident's note and discussed the case with the resident. I agree with the resident's findings and plan as documented. Renal Pt seen and examined at bedside. She is awake and alert. She denies shortness of breath. Current Medications Generic Name Dose Route Start Last Admin Trade Name Freq PRN Reason Stop Dose Admin Acetaminophen 650 mg 01/26/17 20:17 Tylenol - PO Q6H PRN FEVER OR PAIN Albuterol/Ipratropium 1 amp 01/26/17 20:17 Duoneb - NEB Q6H PRN SHORTNESS OF BREATH Alprazolam 0.25 mg 01/26/17 20:17 01/26/17 22:14 Xanax - PO 0.125 mg Q8H PRN Administration ANXIETY Amlodipine Besylate 10 mg 01/27/17 10:00 01/28/17 09:09 Norvasc - PO Not Given DAILY [facility] Apixaban 2.5 mg 01/26/17 22:00 01/28/17 09:07 Eliquis - PO 2.5 mg BID [facility] Administration Aspirin 81 mg 01/27/17 10:00 01/28/17 09:09 Ecotrin - PO Not Given DAILY [facility] Atorvastatin Calcium 20 mg 01/26/17 22:00 01/27/17 21:34 Lipitor - PO 20 mg HS [facility] Administration Furosemide 40 mg 01/27/17 10:00 01/28/17 09:08 Lasix Injection - IVPB 40 mg DAILY [facility] Administration Levothyroxine Sodium 100 mcg 01/27/17 07:42 01/28/17 06:07 Synthroid - PO 100 mcg DAILY@0700 [facility] Administration Metoprolol Tartrate 50 mg 01/28/17 10:00 01/28/17 09:07 Lopressor - PO 50 mg BID [facility] Administration Montelukast Sodium 10 mg 01/26/17 22:00 01/27/17 21:34 Singulair - PO 10 mg HS [facility] Administration Patient's Own 1 each 01/27/17 22:00 01/28/17 09:50 Medication (Non- PO Not Given Formulary) (Taflinar BID [facility] 75 Mg Po Bid) Valsartan 80 mg 01/27/17 10:00 01/28/17 09:09 Diovan - PO 80 mg DAILY [facility] Administration Laboratory Tests 01/27/17 01/28/17 01/28/17 06:00 05:10 06:45 TSH 10.10 H Cortisol AM Sample Pending Urine Osmolality Ur Random Sodium 40 01/28/17 06:45 TSH Cortisol AM Sample Urine Osmolality 521 Ur Random Sodium cardio s1s2 reg pulm clear GI soft ext neg edema neuro awake and alert Impression 1. hyponatremia 2. CHF 3. hypothyroidism 4. thyroid cancer 5. HTN 6. a-fib 7. hyperlipidemia 8. pleural effusion Plan - reviewed osm - sodium is improved - cont lasix - replace potassium - check magnesium level - repeat tsh - etiology of hyponatremia is multifactorial including chf, thiazides and likely excess adh - cont free water restriction - would not restart thiazide - cont with lasix and potassium supplements - monitor sodium closely Dr Del Cid Problem List - Problems (1) Afib Code(s): I48.91 - UNSPECIFIED ATRIAL FIBRILLATION Qualifiers: Atrial fibrillation type: persistent Qualified Code(s): I48.1 - Persistent atrial fibrillation; I48.1 - Persistent atrial fibrillation; I48.1 - Persistent atrial fibrillation; I48.1 - Persistent atrial fibrillation (2) Asthma-COPD overlap syndrome Code(s): J44.9 - CHRONIC OBSTRUCTIVE PULMONARY DISEASE, UNSPECIFIED (3) CHF (congestive heart failure) Code(s): I50.9 - HEART FAILURE, UNSPECIFIED (4) Chest pain Code(s): R07.9 - CHEST PAIN, UNSPECIFIED (5) Pleural effusion Code(s): J90 - PLEURAL EFFUSION, NOT ELSEWHERE CLASSIFIED (6) Thyroid malignant neoplasm Code(s): C73 - MALIGNANT NEOPLASM OF THYROID GLAND (7) Hyponatremia Code(s): E87.1 - HYPO-OSMOLALITY AND HYPONATREMIA
--- NOTE | 2017-01-28 17:00 | PN ---
Progress Note, Physician Chief Complaint: Remains comfortable History of Present Illness: This is an 86 year old female with a PMH of HTN, HLD, COPD, and thyroid ca. She was sent to the ED from her PCP's office with chest pain, palpitations, and QUINTERO. Two weeks prior she was noted to be in new onset afib and was started on Eliquis. She has normal LV function on echocardiogram. n - Current Medication List Current Medications: Active Medications Acetaminophen (Tylenol -) 650 mg PO Q6H PRN PRN Reason: FEVER OR PAIN Albuterol/Ipratropium (Duoneb -) 1 amp NEB Q6H PRN PRN Reason: SHORTNESS OF BREATH Alprazolam (Xanax -) 0.25 mg PO Q8H PRN PRN Reason: ANXIETY Last Admin: 01/26/17 22:14 Dose: 0.125 mg Amlodipine Besylate (Norvasc -) 10 mg PO DAILY [facility] Last Admin: 01/28/17 09:09 Dose: Not Given Apixaban (Eliquis -) 2.5 mg PO BID [facility] Last Admin: 01/28/17 09:07 Dose: 2.5 mg Aspirin (Ecotrin -) 81 mg PO DAILY [facility] Last Admin: 01/28/17 09:09 Dose: Not Given Atorvastatin Calcium (Lipitor -) 20 mg PO HS [facility] Last Admin: 01/27/17 21:34 Dose: 20 mg Furosemide (Lasix Injection -) 40 mg IVPB DAILY [facility] Last Admin: 01/28/17 09:08 Dose: 40 mg Levothyroxine Sodium (Synthroid -) 100 mcg PO DAILY@0700 [facility] Last Admin: 01/28/17 06:07 Dose: 100 mcg Metoprolol Tartrate (Lopressor -) 50 mg PO BID [facility] Last Admin: 01/28/17 09:07 Dose: 50 mg Montelukast Sodium (Singulair -) 10 mg PO HS [facility] Last Admin: 01/27/17 21:34 Dose: 10 mg Patient's Own Medication (Non- Formulary) (Taflinar 75 Mg Po Bid) 1 each PO BID [facility] Last Admin: 01/28/17 09:50 Dose: Not Given Valsartan (Diovan -) 80 mg PO DAILY [facility] Last Admin: 01/28/17 09:09 Dose: 80 mg - Objective Vital Signs: Vital Signs Temperature 98.3 F 01/28/17 14:12 Pulse Rate 111 H 01/28/17 14:12 Respiratory Rate 18 01/28/17 14:12 Blood Pressure 113/60 01/28/17 14:12 O2 Sat by Pulse Oximetry (%) 96 01/28/17 09:00 Constitutional: Yes: No Distress HENT: Yes: WNL Neck: Yes: WNL Cardiovascular: Yes: Pulse Irregular (NL S1S2, no MRHG) Respiratory: Yes: CTA Bilaterally Gastrointestinal: Yes: Soft Edema: LLE: Trace, RLE: Trace Neurological: Yes: Alert (Grossly non focal), Oriented Labs: CBC, BMP 01/27/17 06:00 01/28/17 10:57 INR, PTT INR 1.26 (0.82-1.09) H 01/26/17 16:50 Assessment/Plan Atrial Fibrillation HR is now 111 BPM, BP 113/60 mmHg on Metoprolol Tartrate 50 mg BID Would lower amlodipine to 5 mg daily to "given room" for increasing the metoprolol to 75 mg Q12h Continue Diovan 80 mg PO daily Continue Eliquis 2.5 mg Q12h Continue baby ASA and lipitor 20 for secondary prevention Would change Lasix from IV to 40 mg PO daily
[2017-01-28] MEDS: MONTELUKAST NA 10 MG TABLET PO SCH (23:37)
[2017-01-28] MEDS: ATORVASTATIN CA 20 MG TABLET (FP) PO SCH (23:37)
[2017-01-28] MEDS: ALPRAZolam 0.25 MG TABLET PO PRN (23:41)
[2017-01-29] MEDS: LEVOTHYROXINE NA 100 MCG TABLET (FP) PO SCH (06:47)
[2017-01-29] MEDS ORDERED: LEVOTHYROXINE NA 112 MCG TABLET (FP) PO SCH (07:00)
[2017-01-29 07:58] LABS: ANION GAP 9 (8-16); CALCIUM 7.8 mg/dL (8.5-10.1); CO2 33 mmol/L (21-32); CREATININE 0.7 mg/dL (0.55-1.02); GLUCOSE,RANDOM 86 mg/dL (74-106)
[2017-01-29] MEDS: VALSARTAN 80 MG TABLET (UD) PO SCH (09:32)
[2017-01-29] MEDS: APIXABAN 2.5 MG TABLET PO SCH ×2 (09:32→21:04)
[2017-01-29] MEDS: DABRAFENIB PO SCH ×2 (09:33→21:04)
[2017-01-29] MEDS: FUROSEMIDE 40 MG/4 ML INJECTABLE VIAL IVPB SCH (09:33)
[2017-01-29] MEDS: METOPROLOL TARTRATE 50 MG TABLET (FP) PO SCH ×2 (09:33→21:04)
[2017-01-29] MEDS: ASPIRIN COATED 81 MG TABLET.EC PO SCH (09:34)
--- NOTE | 2017-01-29 10:11 | PN ---
Physical Exam: SUBJECTIVE: Patient seen and examined at bed side this morning. No complaints. Feels better and wants to go home. Denies chest pain, sob, cough, palpitation, abdominal pain, nausea or vomiting. Moved her bowels today, bladder habit normal. Sleep/Appetite normal. As per RN, no acute overnight events. OBJECTIVE: Vital Signs Period Temp Pulse Resp BP Sys/Roberts Pulse Ox Last 24 Hr 97.8 F-98.6 F 66-122 18-20 97-124/52-72 94 GENERAL: Elderly female, lying comfortably in bed, awake, alert, and fully oriented, in no acute distress. HEAD: Normal with no signs of trauma. EYES: EOM intact, mild pallor, no icterus. ENT: Ears normal, moist mucous membranes. NECK: Supple. LUNGS: Breath sounds equal, clear to auscultation bilaterally, no wheezes, no crackles, no accessory muscle use. HEART: Irregularly irregular rate and rhytm, S1, S2 with soft systolic murmur. ABDOMEN: Soft, nontender, nondistended, normoactive bowel sounds, no guarding, no rebound, no hepatosplenomegaly, no masses. EXTREMITIES: 2+ pulses, warm, well-perfused, no edema. NEUROLOGICAL: No facial droop, power 5/5 in all extremities, Normal speech, gait not observed. PSYCH: Normal mood, normal affect. SKIN: Warm, dry, normal turgor, no rashes or lesions noted Laboratory Results - last 24 hr 01/28/17 01/28/17 01/28/17 05:10 05:10 06:45 Sodium Potassium Chloride Carbon Dioxide Anion Gap BUN Creatinine Random Glucose Serum Osmolality 268 L Calcium TSH Cortisol AM Sample 22.6 Urine Color Yellow Urine Appearance Clear Urine pH 7.0 Ur Specific [place] 1.015 Urine Protein Negative Urine Glucose (UA) Negative Urine Ketones Trace H Urine Blood Negative Urine Nitrite Negative Urine Bilirubin Negative Urine Urobilinogen Negative Urine Osmolality 01/28/17 01/28/17 01/29/17 06:45 10:57 05:15 Sodium 130 L 132 L Potassium 3.1 L 3.7 Chloride 85 L 90 L Carbon Dioxide 32 33 H Anion Gap 13 9 BUN 18 20 H Creatinine 0.7 0.7 Random Glucose 110 H 86 D Serum Osmolality Calcium 8.3 L 7.8 L TSH 19.00 H D Cortisol AM Sample Urine Color Urine Appearance Urine pH Ur Specific [place] Urine Protein Urine Glucose (UA) Urine Ketones Urine Blood Urine Nitrite Urine Bilirubin Urine Urobilinogen Urine Osmolality 521 Active Medications Generic Name Dose Route Start Last Admin Trade Name Freq PRN Reason Stop Dose Admin Acetaminophen 650 mg 01/26/17 20:17 Tylenol - PO Q6H PRN FEVER OR PAIN Albuterol/Ipratropium 1 amp 01/26/17 20:17 Duoneb - NEB Q6H PRN SHORTNESS OF BREATH Alprazolam 0.25 mg 01/26/17 20:17 01/28/17 23:41 Xanax - PO 0.125 mg Q8H PRN Administration ANXIETY Amlodipine Besylate 10 mg 01/27/17 10:00 01/28/17 09:09 Norvasc - PO Not Given DAILY TERRI Apixaban 2.5 mg 01/26/17 22:00 01/29/17 09:32 Eliquis - PO 2.5 mg BID TERRI Administration Aspirin 81 mg 01/27/17 10:00 01/29/17 09:34 Ecotrin - PO Not Given DAILY TERRI Atorvastatin Calcium 20 mg 01/26/17 22:00 01/28/17 23:37 Lipitor - PO 20 mg HS TERRI Administration Furosemide 40 mg 01/27/17 10:00 01/29/17 09:33 Lasix Injection - IVPB 40 mg DAILY TERRI Administration Levothyroxine Sodium 100 mcg 01/27/17 07:42 01/29/17 06:47 Synthroid - PO 100 mcg DAILY@0700 TERRI Administration Metoprolol Tartrate 50 mg 01/28/17 10:00 01/29/17 09:33 Lopressor - PO 50 mg BID TERRI Administration Montelukast Sodium 10 mg 01/26/17 22:00 01/28/17 23:37 Singulair - PO 10 mg HS TERRI Administration Patient's Own 1 each 01/27/17 22:00 01/29/17 09:33 Medication (Non- PO 1 each Formulary) (Taflinar BID TERRI Administration 75 Mg Po Bid) Valsartan 80 mg 01/27/17 10:00 01/29/17 09:32 Diovan - PO 80 mg DAILY TERRI Administration Patient is a 86-year-old female, with a significant past medical history of, HTN , hyperlipidemia COPD, thyroid disease, thyroid ca (on chemotherapy), who was sent to the ED from office due to shortness of breath. ASSESSMENT/PLAN: 1. Hyponatremia 2. Hypertension 3. Hyperlipidemia 4. Hypothyroidism- TSH increased to 19 5. Thyroid cancer s/p thyroidectomy, radiation and chemo 6. Atrial fibrillation-rate controlled 7. Shortness of breath likely due to Pleural effusion, CHF 8. Hypokalemia-normalized Hypotonic Hyponatremia Sodium level improving, sodium was 130---> 127---> 130-->132 today. Serum Osmolarity 268, osmolar gap 32, Urine osmolality 521, likely it is hypotonic hyponatremia Hyponatremia can also be secondary to CHF and pleural effusion. Urine electrolyes normal Continue Restricting fluid intake Encourage patient to eat Avoid taking Thiazide Hypokalemia- normalized K-3.5--->3.2--->3.1-->3.7 Add K-dur 40 mg once given yesterday. Rest as per primary Case discussed with Dr. Del Cid. Thank you for the consultative opportunity. Visit type - Emergency Visit Emergency Visit: Yes ED Registration Date: 01/26/17 Care time: The patient presented to the Emergency Department on the above date and was hospitalized for further evaluation of their emergent condition. - New Patient This patient is new to me today: No - Critical Care Critical Care patient: No - Discharge Referral Referred to [facility] No
--- NOTE | 2017-01-29 10:53 | PN ---
Progress Note, Physician Chief Complaint: patient in bed no cp no SOB feeling ok - Current Medication List Current Medications: Active Medications Acetaminophen (Tylenol -) 650 mg PO Q6H PRN PRN Reason: FEVER OR PAIN Albuterol/Ipratropium (Duoneb -) 1 amp NEB Q6H PRN PRN Reason: SHORTNESS OF BREATH Alprazolam (Xanax -) 0.25 mg PO Q8H PRN PRN Reason: ANXIETY Last Admin: 01/28/17 23:41 Dose: 0.125 mg Apixaban (Eliquis -) 2.5 mg PO BID [facility] Last Admin: 01/29/17 09:32 Dose: 2.5 mg Aspirin (Ecotrin -) 81 mg PO DAILY [facility] Last Admin: 01/29/17 09:34 Dose: Not Given Atorvastatin Calcium (Lipitor -) 20 mg PO HS [facility] Last Admin: 01/28/17 23:37 Dose: 20 mg Furosemide (Lasix Injection -) 40 mg IVPB DAILY [facility] Last Admin: 01/29/17 09:33 Dose: 40 mg Levothyroxine Sodium (Synthroid -) 100 mcg PO DAILY@0700 [facility] Last Admin: 01/29/17 06:47 Dose: 100 mcg Metoprolol Tartrate (Lopressor -) 50 mg PO BID [facility] Last Admin: 01/29/17 09:33 Dose: 50 mg Montelukast Sodium (Singulair -) 10 mg PO HS [facility] Last Admin: 01/28/17 23:37 Dose: 10 mg Patient's Own Medication (Non- Formulary) (Taflinar 75 Mg Po Bid) 1 each PO BID [facility] Last Admin: 01/29/17 09:33 Dose: 1 each Valsartan (Diovan -) 80 mg PO DAILY [facility] Last Admin: 01/29/17 09:32 Dose: 80 mg - Objective Vital Signs: Vital Signs Temperature 98.6 F 01/29/17 05:06 Pulse Rate 82 01/29/17 05:06 Respiratory Rate 20 01/29/17 05:06 Blood Pressure 124/72 01/29/17 05:06 O2 Sat by Pulse Oximetry (%) 94 L 01/28/17 20:25 Constitutional: Yes: Calm, Thin Cardiovascular: Yes: Pulse Irregular, S1, S2 Respiratory: Yes: CTA Bilaterally Gastrointestinal: Yes: Normal Bowel Sounds, Soft Edema: No Neurological: Yes: Alert, Oriented Labs: CBC, BMP 01/27/17 06:00 01/29/17 05:15 INR, PTT INR 1.26 (0.82-1.09) H 01/26/17 16:50 Problem List - Problems (1) Afib Assessment/Plan: metoprolol for rate control cannot uptitrate as yet givne BP in 118-120 systolic eliquis 2.5 mg bid aspirin and statin for secondary prevention per cardiology patient refuse to take aspirin Code(s): I48.91 - UNSPECIFIED ATRIAL FIBRILLATION Qualifiers: Atrial fibrillation type: persistent Qualified Code(s): I48.1 - Persistent atrial fibrillation; I48.1 - Persistent atrial fibrillation; I48.1 - Persistent atrial fibrillation; I48.1 - Persistent atrial fibrillation (2) Hyponatremia Assessment/Plan: appreciate renal eval stop hctz na improved to 132 today Code(s): E87.1 - HYPO-OSMOLALITY AND HYPONATREMIA (3) Hypothyroid Assessment/Plan: tsh is elevated on synthroid dose increaesed to 100mcg will dwihgt to recheck tsh in 2 week Code(s): E03.9 - HYPOTHYROIDISM, UNSPECIFIED (4) Hypertension Assessment/Plan: stop norvac given BP is lowerside continue with BB for rate control Code(s): I10 - ESSENTIAL (PRIMARY) HYPERTENSION (5) Pleural effusion Assessment/Plan: on iv lasix repeat cxr monitor potassium Code(s): J90 - PLEURAL EFFUSION, NOT ELSEWHERE CLASSIFIED
[2017-01-29] MEDS: amLODIPine BESYLATE 10 MG TABLET (FP) PO SCH (11:37)
--- NOTE | 2017-01-29 13:03 | PN ---
Progress Note (short form) - Note Progress Note: PULMONARY Feels better, denies cough or wheezing. Able to ambulate hallways. Wants to go home. Last Vital Signs Temp Pulse Resp BP Pulse Ox 98 F 120 H 18 118/60 95 01/29/17 09:00 01/29/17 09:00 01/29/17 09:00 01/29/17 09:00 01/29/17 09:00 Gen: NAD in chair Heart: tachycardic, irregular Lung: decreased breath sounds at the bases Abd: soft, nontender Ext: trace distal edema CBC, BMP 01/27/17 06:00 01/29/17 05:15 Active Medications Acetaminophen (Tylenol -) 650 mg PO Q6H PRN PRN Reason: FEVER OR PAIN Albuterol/Ipratropium (Duoneb -) 1 amp NEB Q6H PRN PRN Reason: SHORTNESS OF BREATH Alprazolam (Xanax -) 0.25 mg PO Q8H PRN PRN Reason: ANXIETY Last Admin: 01/28/17 23:41 Dose: 0.125 mg Apixaban (Eliquis -) 2.5 mg PO BID [facility] Last Admin: 01/29/17 09:32 Dose: 2.5 mg Aspirin (Ecotrin -) 81 mg PO DAILY [facility] Last Admin: 01/29/17 09:34 Dose: Not Given Atorvastatin Calcium (Lipitor -) 20 mg PO HS [facility] Last Admin: 01/28/17 23:37 Dose: 20 mg Furosemide (Lasix Injection -) 40 mg IVPB DAILY [facility] Last Admin: 01/29/17 09:33 Dose: 40 mg Levothyroxine Sodium (Synthroid -) 100 mcg PO DAILY@0700 [facility] Last Admin: 01/29/17 06:47 Dose: 100 mcg Metoprolol Tartrate (Lopressor -) 50 mg PO BID [facility] Last Admin: 01/29/17 09:33 Dose: 50 mg Montelukast Sodium (Singulair -) 10 mg PO HS [facility] Last Admin: 01/28/17 23:37 Dose: 10 mg Patient's Own Medication (Non- Formulary) (Taflinar 75 Mg Po Bid) 1 each PO BID [facility] Last Admin: 01/29/17 09:33 Dose: 1 each Valsartan (Diovan -) 80 mg PO DAILY [facility] Last Admin: 01/29/17 09:32 Dose: 80 mg A/P Acute on Chronic Diastolic Heart Failure Atrial Fibrillation with RVR COPD Thyroid Ca Hyponatremia GERD Anemia - continue lasix, agree can change to PO - rate control - continue anticoagulation - inhaled bronchodilators - ambulate
--- NOTE | 2017-01-29 16:17 | PN ---
Teaching Attending Note Name of Resident: Shivani Han (Nephrology) ATTENDING PHYSICIAN STATEMENT I saw and evaluated the patient. I reviewed the resident's note and discussed the case with the resident. I agree with the resident's findings and plan as documented. Renal follow up Pt seen and examined at bedside. She is awake and alert. cardio s1s2 reg pulm clear GI soft ext neg edema neuro awake and alert Impression 1. hyponatremia 2. CHF 3. hypothyroidism 4. thyroid cancer 5. HTN 6. a-fib 7. hyperlipidemia 8. pleural effusion Plan - sodium is improving - cont lasix - avoid thiazides - called and discussed with PMD - tsh remains elevated - monitor sodium closely Dr Del Cid Problem List - Problems (1) Afib Code(s): I48.91 - UNSPECIFIED ATRIAL FIBRILLATION Qualifiers: Atrial fibrillation type: persistent Qualified Code(s): I48.1 - Persistent atrial fibrillation; I48.1 - Persistent atrial fibrillation; I48.1 - Persistent atrial fibrillation; I48.1 - Persistent atrial fibrillation (2) Asthma-COPD overlap syndrome Code(s): J44.9 - CHRONIC OBSTRUCTIVE PULMONARY DISEASE, UNSPECIFIED (3) CHF (congestive heart failure) Code(s): I50.9 - HEART FAILURE, UNSPECIFIED (4) Chest pain Code(s): R07.9 - CHEST PAIN, UNSPECIFIED (5) Pleural effusion Code(s): J90 - PLEURAL EFFUSION, NOT ELSEWHERE CLASSIFIED (6) Thyroid malignant neoplasm Code(s): C73 - MALIGNANT NEOPLASM OF THYROID GLAND (7) Hyponatremia Code(s): E87.1 - HYPO-OSMOLALITY AND HYPONATREMIA
--- NOTE | 2017-01-29 16:35 | PN ---
Progress Note, Physician Chief Complaint: Remains comfortable History of Present Illness: This is an 86 year old female with a PMH of HTN, HLD, COPD, and thyroid ca. She was sent to the ED from her PCP's office with chest pain, palpitations, and QUINTERO. Two weeks prior she was noted to be in new onset afib and was started on Eliquis. She has normal LV function on echocardiogram. n - Current Medication List Current Medications: Active Medications Acetaminophen (Tylenol -) 650 mg PO Q6H PRN PRN Reason: FEVER OR PAIN Albuterol/Ipratropium (Duoneb -) 1 amp NEB Q6H PRN PRN Reason: SHORTNESS OF BREATH Alprazolam (Xanax -) 0.25 mg PO Q8H PRN PRN Reason: ANXIETY Last Admin: 01/28/17 23:41 Dose: 0.125 mg Apixaban (Eliquis -) 2.5 mg PO BID [facility] Last Admin: 01/29/17 09:32 Dose: 2.5 mg Aspirin (Ecotrin -) 81 mg PO DAILY [facility] Last Admin: 01/29/17 09:34 Dose: Not Given Atorvastatin Calcium (Lipitor -) 20 mg PO HS [facility] Last Admin: 01/28/17 23:37 Dose: 20 mg Furosemide (Lasix Injection -) 40 mg IVPB DAILY [facility] Last Admin: 01/29/17 09:33 Dose: 40 mg Levothyroxine Sodium (Synthroid -) 100 mcg PO DAILY@0700 [facility] Last Admin: 01/29/17 06:47 Dose: 100 mcg Metoprolol Tartrate (Lopressor -) 50 mg PO BID [facility] Last Admin: 01/29/17 09:33 Dose: 50 mg Montelukast Sodium (Singulair -) 10 mg PO HS [facility] Last Admin: 01/28/17 23:37 Dose: 10 mg Patient's Own Medication (Non- Formulary) (Taflinar 75 Mg Po Bid) 1 each PO BID [facility] Last Admin: 01/29/17 09:33 Dose: 1 each Valsartan (Diovan -) 80 mg PO DAILY [facility] Last Admin: 01/29/17 09:32 Dose: 80 mg - Objective Vital Signs: Vital Signs Temperature 98.5 F 01/29/17 15:00 Pulse Rate 117 H 01/29/17 15:00 Respiratory Rate 18 01/29/17 15:00 Blood Pressure 96/61 01/29/17 15:00 O2 Sat by Pulse Oximetry (%) 95 01/29/17 09:00 Constitutional: Yes: No Distress Neck: Yes: WNL Cardiovascular: Yes: Pulse Irregular ([id number], no MRHG) Respiratory: Yes: CTA Bilaterally Gastrointestinal: Yes: Soft Extremities: Yes: WNL Edema: No Neurological: Yes: Alert, Oriented (Grossly nonfocal) Labs: CBC, BMP 01/27/17 06:00 01/29/17 05:15 INR, PTT INR 1.26 (0.82-1.09) H 01/26/17 16:50 Assessment/Plan Atrial Fibrillation HR is now 117 BPM, BP 96/61 mmHg on metoprolol tartrate 50 mg BID Agree with DC'ing amlodipine Would also consider stopping Diovan 80 mg PO daily If BP allows, would then increase metoprolol tartrate to 75 mg PO Q12h Continue Eliquis 2.5 mg Q12h Continue baby ASA and lipitor 20 for secondary prevention Would change Lasix from IV to 40 mg PO daily Would add PO Potassium supplementation
[2017-01-29] MEDS: ATORVASTATIN CA 20 MG TABLET (FP) PO SCH (21:04)
[2017-01-29] MEDS: MONTELUKAST NA 10 MG TABLET PO SCH (21:04)
[2017-01-30 07:52] LABS: ALBUMIN 3.3 g/dl (3.4-5.0); ALK PHOS 67 U/L (45-117); ANION GAP 15 (8-16); BILIRUBIN,TOTAL 0.9 mg/dL (0.2-1.0); CALCIUM 7.5 mg/dL (8.5-10.1); CO2 27 mmol/L (21-32); CREATININE 0.7 mg/dL (0.55-1.02); GLUCOSE,RANDOM 99 mg/dL (74-106); SGOT/AST 23 U/L (15-37); SGPT/ALT 18 U/L (12-78); TOT PROT 6.8 g/dl (6.4-8.2)
[2017-01-30] MEDS ORDERED: METOPROLOL TARTRATE 50 MG TABLET (FP) PO SCH (09:46)
--- NOTE | 2017-01-30 09:58 | DS ---
Physical Examination Vital Signs: Vital Signs Temperature 98.9 F 01/30/17 05:42 Pulse Rate 126 H 01/30/17 05:42 Respiratory Rate 18 01/30/17 05:42 Blood Pressure 143/58 01/30/17 05:42 O2 Sat by Pulse Oximetry (%) 95 01/29/17 21:00 Constitutional: Yes: Calm, Thin Neck: Yes: Trachea Midline Cardiovascular: Yes: Pulse Irregular, S1, S2 Respiratory: Yes: CTA Bilaterally Gastrointestinal: Yes: Normal Bowel Sounds, Soft Edema: No Neurological: Yes: Alert, Oriented Labs: CBC, BMP 01/27/17 06:00 01/30/17 06:30 Discharge Summary Reason For Visit: ATRIAL FIBRILLATION Current Active Problems Afib (Acute) Asthma-COPD overlap syndrome (Acute) CHF (congestive heart failure) (Acute) Chest pain (Acute) Hypertension (Acute) Hyponatremia (Acute) Hypothyroid (Acute) Pleural effusion (Acute) Thyroid malignant neoplasm (Acute) Hospital Course: - Admission History of Present Illness: 86-year-old female, with a significant past medical history of, HTN, hypercholesterolemia, COPD, thyroid disease, thyroid ca (on chemotherapy), who was sent to the ED from office due to chest pain and sob. Pt states that she was experiencing palpitations last night that lasted about an hour before resolving on its own. The patient was seen in office 2 weeks ago noted to be in afib with rate controlled and asymptomatic she was started on Eliquis . Echo done and shows normal Lv function--copy in chart This am pt feels a little better but still with sob on minimal exertion - Past Medical History Cardiovascular: Yes: AFIB, HTN, Hyperlipdemia Pulmonary: Yes: Asthma, Other (pulmonary nodules--mets) Gastrointestinal: Yes: GERD Heme/Onc: Yes: Anemia Endocrine: Yes: Hypothyroidism, Other (osteoporosis) - Past Surgical History Additional Past Surgical History: thyroidectomy - Smoking History Smoking history: Never smoked Have you smoked in the past 12 months: No - Alcohol/Substance Use Hx Alcohol Use: No afib metoprolol dose increase to 75mg po bid, eliquis bid hyponatremia stable continue lasix stop thiazides HTN stop diovanm aspirin and statin is secondary prevention thyroid cancer now hypothyroid: synthroid tsh 19 inc synthroid to 112mcg has fu appoointment with the endocrine doctor on thursday - Instructions Referrals: Andrea Ramirez MD [Primary Care Provider] - - Home Medications Comprehensive Discharge Medication List: Ambulatory Orders Alprazolam 0.125 mg PO HS PRN 12/07/12 Amlodipine Bes/Olmesartan Med [Saeed 10-20 mg Tablet] 1 each PO DAILY 12/07/12 Aspirin [ASA -] 81 mg PO DAILY 12/07/12 Atenolol [Tenormin -] 100 mg PO DAILY 12/07/12 Simvastatin [Zocor -] 20 mg PO HS 12/07/12 Levothyroxine [Synthroid -] 88 mcg PO DAILY 06/13/14 Apixaban [Eliquis] 2.5 mg PO BID 01/26/17 Dabrafenib Mesylate [Tafinlar] 75 mg PO BID 01/26/17 Montelukast Sodium [Singulair Granules -] 4 mg PO HS 01/26/17
[2017-01-30] MEDS ORDERED: FUROSEMIDE 40 MG TABLET (FP) PO SCH (10:00)
[2017-01-30] MEDS: ASPIRIN COATED 81 MG TABLET.EC PO SCH (10:33)
[2017-01-30] MEDS: DABRAFENIB PO SCH (10:34)
[2017-01-30] MEDS: APIXABAN 2.5 MG TABLET PO SCH (10:34)
[2017-01-30 11:13] VITALS: BP 119/64; PULSE 66; TEMP 98.1
== END 2017-01-30 13:25 | disposition home or self-care (01) | DRG 308 ==
LOC: JER 15:41 → JERBED 17:37 → J4W 20:08
PROVIDERS: ADMIT Family Medicine; ATTEND Family Medicine
DX: I48.1 Persistent atrial fibrillation (principal); I50.33 Acute on chronic diastolic (congestive) heart failure; C78.00 Secondary malignant neoplasm of unspecified lung; E87.1 Hypo-osmolality and hyponatremia; Z79.01 Long term (current) use of anticoagulants; I10 Essential (primary) hypertension; J44.9 Chronic obstructive pulmonary disease, unspecified; E89.0 Postprocedural hypothyroidism; E78.5 Hyperlipidemia, unspecified; C73 Malignant neoplasm of thyroid gland; K21.9 Gastro-esophageal reflux disease without esophagitis; M81.0 Age-related osteoporosis without current pathological fracture; E87.6 Hypokalemia
CPT/HCPCS: 36415; 71010-TC; 71020-TC; 80048; 80053; 80061; 81003; 82436; 82533; 83036; 83721; 83735; 83880; 83930; 83935; 84133; 84300; 84443; 84484; 85025; 85027; 85610; 93005; 93010; 97116-GP; 97161-GP; 99284-25